=== PATIENT | male | born 1945 | race Caucasian/White ===

== ENCOUNTER 2018-06-24 12:58 | Outpatient (CLI) | payer MEDICARE ==
[2018-06-24] MEDS ORDERED: ALBUTEROL NEB 2.5 MG/3 ML INH ONE (15:00)
== END 2018-06-24 12:59 | disposition home or self-care (01) ==
LOC: RT 12:58
PROVIDERS: ATTEND Registered Nurse
DX: J42 Unspecified chronic bronchitis (principal); J44.9 Chronic obstructive pulmonary disease, unspecified; F17.200 Nicotine dependence, unspecified, uncomplicated
CPT/HCPCS: 94060

== ENCOUNTER 2018-06-28 10:48 | Outpatient (CLI) | payer MEDICARE ==
--- NOTE | 2018-06-28 13:05 | CT Report ---
Reason: ENCOUNTER FOR SCREENING FOR MALIGNANT NEOPLASM OF Procedure Date: 06/28/2018 Accession Number: [id number] / [id number] Procedure: CT - Chest/Lung Screen Low Dose W/O CPT Code: FULL RESULT: EXAM CT LUNG SCREEN EXAM DATE: 06/28/2018 11:10 AM. HISTORY: 73-year-old patient with [id number] smoking history, current smoker. COMPARISON: CT lung screening 04/19/2017. TECHNIQUE: CT examination of the entire thorax without contrast was performed using low-dose technique. Thin section coronal, axial, sagittal and MIP axial images were obtained. In accordance with CT protocol optimization, one or more of the following dose reduction techniques were utilized for this exam: automated exposure control, adjustment of mA and/or KV based on patient size, or use of iterative reconstructive technique. FINDINGS: Nodules: Right upper lobe: 5 x 3 mm solid (32/4), unchanged. 2 mm solid (47), unchanged. 3 x 4 mm solid (54), unchanged. 5 x 5 mm solid (73), stable. 1 mm solid peripheral (99), unchanged. Right middle lobe: None. Right lower lobe: 2 mm solid (126), previously 3 mm. Left upper lobe: 2-3 mm solid peripheral (21, 29, 33, 39, 60, 85), unchanged. Left lower lobe: 3 mm solid (110), unchanged. 4 mm solid (111), unchanged. Emphysema: Moderate centrilobular and paraseptal emphysema. Pleura: Unremarkable. No pleural calcification or effusion. Thoracic Aorta: Ascending thoracic aorta 3.8 cm, unchanged. Mediastinum: No gross mediastinal or hilar adenopathy. Normal heart size. Coronary calcifications: Three-vessel coronary calcifications. Other pulmonary findings: Scattered bilateral pleural-parenchymal scarring. Other extrapulmonary findings: Degenerative changes of the spine. IMPRESSION: Lung-RADS ASSESSMENT CATEGORY: 2 - Benign appearance or behavior. Probability of malignancy: Less than 1%. RECOMMENDATION: Continue annual screening with LDCT per Lung-RADS guidelines. RADIA
== END 2018-06-28 10:49 | disposition home or self-care (01) ==
LOC: DI 10:48
PROVIDERS: ATTEND Registered Nurse
DX: Z12.2 Encounter for screening for malignant neoplasm of respiratory organs (principal); F17.210 Nicotine dependence, cigarettes, uncomplicated

== ENCOUNTER 2019-12-26 10:42 | Outpatient (CLI) | payer MEDICARE ==
--- NOTE | 2019-12-26 12:44 | CT Report ---
PROCEDURE: Low Dose Lung Cancer Screen INDICATIONS: TABACCO USER TECHNIQUE: Noncontrast low-dose 5 mm thick sections acquired from the pulmonary apices to the posterior costophr enic angles. 7 mm thick coronal and sagittal MIP reformats were then acquired. For radiation dose r eduction, the following was used: automated exposure control, adjustment of mA and/or kV according t o patient size. COMPARISON: Prior similar CT screening studies 06/28/2018 and 04/19/2017 reviewed. FINDINGS: Image quality: Excellent. Lungs and pleura: Severe centrilobular emphysema again noted. Focal lung scarring at the right apex has been previously present, and is again seen on the current study series 4 image 45, virtually iden tical to the prior study in June of last year seen on series 4 image 32. No new lesion has develop ed. Mediastinum: Heart size is normal. No pericardial effusion. No mediastinal adenopathy by size crit eria. Thoracic aorta and central pulmonary arteries are normal in size. Esophagus is normal in vonnie osphia. No hiatal hernia. Bones and chest wall: No suspicious bony lesions. No vertebral body compression fractures. No axil ashleigh or supraclavicular adenopathy by size criteria. The thyroid is normal in size. Abdomen: Visualized upper abdomen solid organs and bowel loops appear normal in the absence of contr ast. IMPRESSION: Severe emphysema but no early manifestation of new onset lung carcinoma is found. Lung RADS category 1, follow-up noncontrast low-dose screening CT in one year is recommended. Reviewed by: Ishaan Grace MD on 12/26/2019 12:42 PM PDT Approved by: Ishaan Grace MD on 12/26/2019 12:42 PM PDT Station ID: [id number]
== END 2019-12-26 10:43 | disposition home or self-care (01) ==
LOC: DI 10:42
PROVIDERS: ATTEND Registered Nurse
DX: Z12.2 Encounter for screening for malignant neoplasm of respiratory organs (principal); J43.2 Centrilobular emphysema; F17.200 Nicotine dependence, unspecified, uncomplicated
CPT/HCPCS: G0297 ×2

== ENCOUNTER 2021-04-21 12:15 | Outpatient (CLI) | payer MEDICARE ==
[2021-04-21] MEDS ORDERED: REGADENOSON 0.4 MG/5 ML SYRINGE IVP ONE ×2 (14:16→16:28)
[2021-04-21] MEDS ORDERED: AMINOPHYLLINE 500 MG/20 ML VIAL ONE (14:16)
--- NOTE | 2021-04-21 14:35 | CARDIAC PROCEDURE NOTE ---
Stress Test Report Service Date: 04/21/21 Service Time: 12:30 Ordering Provider: Kelsy Gupta NP Indication for Test: Repeat risk stratification for CAD in patient with remote AZ. Significant Medical History: -Mr Lewis reports an AZ occurring in the mid , manifested by crushing chest pain. The infarct was treated medically and his recollection is that the event was attributed to a "kinked" left circumflex coronary artery. He has never had any chest pain of similar character since. He remains on treatment with atorvastatin and ASA, with lisinopril for hypertension. -A "couple of years ago" he experienced what appears to have been an acute left lower extremity clot versus embolus, treated with urgent surgery. -He remains physically active, reporting yard work, other household tasks and shopping, but says he has "slowed down" markedly, with dyspnea if he goes too fast; this seems to have been of gradual onset, without clear recent worsening. Cardiac Risk Factors: Positive for known prior AZ, hypertension, dyslipidemia and family history of CAD; he is still smoking cigarettes, about a quarter pack per day. He denies history of diabetes. Type of Stress Test: Pharmacologic Stress Test with MPI Pharmacologic Agent: Lexiscan Procedure: -Pharmacologic Stress Test- After signing informed consent, the patient underwent rest SPECT imaging and then a walking Lexiscan pharmacologic stress test. The protocol includes 2 minutes of flat walking at 0.7 mph ("baseline" assessment) followed by injection of Lexiscan and high dose 99Tc-Myoview with an additional 2 minutes of walking ("peak" reassesment) followed by monitoring for an additional 4 minutes ("recovery"). The test was terminated due to completing the protocol. Baseline heart rate: 81 Peak heart rate: 108 Normal HR response. Baseline BP: 160/98 Peak BP: 164/79 Normal BP response. Rhythm during testing: Sinus rhythm with isolated PACs, PVCs and a single observed ventricular triplet. Symptoms: Slight increase in shortness of breath. EKG at rest showed normal sinus rhythm with PAC and PVC. EKG at peak stress showed no ischemia by EKG criteria. In Recovery heart rate gradually returned to baseline, blood pressure remained elevated. Nuclear imaging was performed at rest and with stress. The images will be reported separately. Jeovanny Carrillo MD, was present throughout this treadmill/pharmacologic stress study and supervised it in its entirety. Summary: 1) Abnormal resting EKG. 2) Adequate stress was likely achieved. 3) Abnormal BP response to pharmacologic agent. 4) No ischemic changes by EKG criteria were seen at peak stress. 5) Nuclear image interpretation to be reported separately. CONCLUSIONS:
--- NOTE | 2021-04-21 17:22 | Nuclear Medicine Report ---
PROCEDURE: Rest and stress myocardial perfusion SPECT with gated imaging and ejection fraction INDICATIONS: CONGENITAL HEART DISEASE RADIOPHARMACEUTICAL: 11.0 mCi Tc-99m Myoview IV at rest and 34.5 mCi Tc-99m Myoview IV at peak exerc ise. [id number]-[id number] was performed. 0.4 mg Lexiscan was administered. TECHNIQUE: Radiopharmaceutical was injected at peak stress test, and also at rest. SPECT images wer e obtained. SPECT myocardial perfusion images were displayed in short axis, horizontal long axis, an d vertical long axis views. Gated images were reviewed using AutoQUANT software. COMPARISON: None available. FINDINGS: Raw data: There is good myocardial labeling by radiotracer. No significant motion artifacts. Lung- to-heart ratio is (normal is less than 0.46 for tetrafosmin tracer). Left ventricle function: Gated images demonstrate normal left ventricle wall thickening. No segment al wall motion abnormality. No transient ischemic dilation; TID is 0.92 (normal less than 1.30). Th e left ventricle resting end-diastolic volume is 78 mL. Left ventricle stress ejection fraction is 7 0%; normal values are above 45%. Myocardial perfusion: There is normal distribution of activity in the left and right ventricular kari cardium. No fixed or reversible perfusion defects. IMPRESSION: 1. No perfusion defects to indicate ischemia. No wall motion abnormalities. 2. Ejection fraction 70%. 3. No definitive EKG changes for ischemia. PQRS ATTESTATIONS: Measure 322 - Is this imaging test primarily performed on a low-risk surgery patient for preoperative evaluation within 30 days preceding their low-risk non-cardiac surgery? Low-risk surgery is defined as cardiac or myocardial infarction less than 1%, including (but not limited to) endoscopic pr ocedures, superficial procedures, cataract surgery, and excisional breast surgery: Answer: No Measure 323 - Is this imaging test performed primarily for the monitoring of an asymptomatic patient who had percutaneous coronary intervention on the visit date or within 2 years of the visit date? An swer: No Measure 324 - Is this imaging test performed primarily for the initial detection and risk assessment on an asymptomatic, low coronary heart disease patient? Low CHD risk definition = clinicians should consider the maximum number of available patient factors used to estimate risk based on [place] (A TP III criteria), typically age, gender, diabetes, smoking status, and use of blood pressure medicati on, and integrate age appropriate estimates for missing elements, such as LDL or standard blood press ure. Answer: No Reviewed by: Renetta Levi MD on 04/21/2021 5:21 PM PST Approved by: Renetta Levi MD on 04/21/2021 5:21 PM PST Station ID: [id number]
[2021-04-24] MEDS ORDERED: NITROGLYCERIN SL 0.4 MG TABLET SL PRN (14:45)
== END 2021-04-21 12:16 | disposition home or self-care (01) ==
LOC: DI 12:15
PROVIDERS: ATTEND Registered Nurse
DX: Q24.9 Congenital malformation of heart, unspecified (principal)
CPT/HCPCS: 78452; 93017; A9500; J2785

== ENCOUNTER 2023-02-25 17:43 | Emergency (ER) | payer MEDICARE ==
[2023-02-25 18:06] VITALS: BP 129/82
[2023-02-25] MEDS ORDERED: methylPREDNISolone SUCCINATE 125 MG/2 ML VIAL IVP STA (18:21)
--- NOTE | 2023-02-25 18:21 | ED Physician Documentation ---
PD HPI DYSPNEA - Stated complaint Stated Complaint: SOA/COUGHING - Chief complaint Chief Complaint: Resp - History obtained from History obtained from: Patient - Additional information Additional information: 78-year-old gentleman with history of COPD. Still smokes. At baseline uses 2 inhalers. No other health problems. He got sick about 6 days ago with a cold and then over the subsequent days developed severe shortness of breath. He has a cough productive of clear to white sputum. No chest pain. No fevers. Negative COVID test earlier today. Went to primary care today to actually follow-up on a rising creatinine issue and was sent here because of wheezing and hypoxemia. He received a nebulizer in the clinic and actually feels better now. No pedal edema or calf pain. PD PAST MEDICAL HISTORY - Past Medical History Cardiovascular: Hypertension, MD - Past Surgical History Past Surgical History: Yes - Present Medications Home Medications: Ambulatory Orders Medication Instructions Recorded Confirmed Levothyroxine [Synthroid] 200 mg PO DAILY 12/31/15 01/06/16 lisinopriL [Lisinopril] 5 mg PO DAILY 12/31/15 01/06/16 Hydrocodone/Acetaminophen 1 - 2 each PO Q4H PRN 01/07/16 01/07/16 [Hydrocodon-Acetaminophen 5-325] Doxycycline [Vibramycin] 100 mg PO BID #14 tablet 02/25/23 predniSONE [Deltasone] 20 mg PO [id number] #21 tab 02/25/23 - Allergies Allergies/Adverse Reactions: Allergies Allergy/AdvReac Type Severity Reaction Status Date / Time No Known Drug Allergies Allergy Verified 12/31/15 09:26 - Social History Does the pt smoke?: Yes Smoking Status: Current every day smoker Does the pt drink ETOH?: No Does the pt have substance abuse?: No PD ED PE NORMAL - Vitals Vital signs reviewed: Yes - General General: Alert and oriented X 3, No acute distress - Neck Neck: Supple, no meningeal sign, No bony TTP - Cardiac Cardiac: RRR, No murmur - Respiratory Respiratory: Other (Diminished throughout without focal findings, speaking full sentences but mildly tachypneic.) - Extremities Extremities: No edema, No calf tenderness / cord - Neuro Neuro: Alert and oriented X 3, Normal speech Results - Vitals Vitals: Vital Signs - 24 hr 02/25/23 18:00 Temperature 37.1 C Heart Rate 81 Respiratory 28 H Rate Blood Pressure 129/82 H O2 Saturation 89 L Oxygen O2 Source Room air - EKG (time done) 1756 EKG releavant findings:: EKG personally interpreted by author of this note. Relevant findings are: Rate: Rate (enter#) (78) Rhythm: NSR [place]: Normal Intervals: Normal [place] QRS: Normal Ischemia: Normal ST segments - Labs Labs: Laboratory Tests 02/25/23 02/25/23 02/25/23 18:19 18:19 18:19 WBC 11.8 H RBC 4.66 L Hgb 13.8 L Hct 42.7 MCV 91.6 MCH 29.6 MCHC 32.3 RDW 19.6 H Plt Count 329 MPV 11.6 H Neut # (Auto) 7.1 H Lymph # (Auto) 3.5 [place] # (Auto) 0.8 Eos # (Auto) 0.3 Baso # (Auto) 0.1 Absolute Nucleated RBC 0.00 Nucleated RBC % 0.0 VBG pH 7.287 L VBG pCO2 57.7 H VBG pO2 24.2 L VBG HCO3 26.9 VBG Total CO2 28.7 VBG O2 Saturation 48.3 L VBG Base Excess -0.9 Sodium 145 Potassium 4.7 H Chloride 110 Carbon Dioxide 30 Anion Gap 5.0 L BUN 32 H Creatinine 1.7 H Estimated GFR (MDRD) 39 L Glucose 109 H Calcium 9.4 Phosphorus 4.2 Magnesium 1.9 Total Bilirubin 0.6 AST 15 ALT 13 Alkaline Phosphatase 96 Total Protein 6.1 L Albumin 3.9 Globulin 2.2 Albumin/Globulin Ratio 1.8 - Rads (name of study) Single view chest x-ray demonstrates hyperinflation and chronic interstitial changes. Relevant Findings:: Final report received, EMP independent interpretation of test PD Medical Decision Making - ED course ED course: 78-year-old gentleman with COPD exacerbation, clear chest x-ray. Mild elevation of white count. Mild acidosis and CO2 retention. Creatinine continues to rise. He did not want to be hospitalized and here at rest after IV Solu-Medrol his sats were in the mid 90s on room air. Close follow-up advised. Departure - Departure Disposition: 01 Home, Self Care Clinical Impression: COPD exacerbation Condition: Good Record reviewed to determine appropriate education?: Yes Instructions: COPD Dc Prescriptions: predniSONE [Deltasone] 20 mg PO [id number] #21 tab Doxycycline [Vibramycin] 100 mg PO BID #14 tablet Comments: Do best to quit smoking also discussed other options with your primary care physician, such as Chantix. Return if worse. I am prescribing antibiotics and steroids which should be helpful as well. Your kidney function is still rising and this requires further work-up with your primary care physician as well. Drink plenty of fluids. Forms: PCP List
--- NOTE | 2023-02-25 18:24 | XRAY Report ---
PROCEDURE: Chest 1 View X-Ray INDICATIONS: cough dyspnea TECHNIQUE: One view of the chest was acquired. COMPARISON: None FINDINGS: Surgical changes and devices: None. Lungs and pleura: There is hyperinflation and chronic interstitial changes without focal infiltrate, pneumothorax or pleural effusion. Mediastinum: Mediastinal contours appear normal. Heart size is normal. Bones and chest wall: No suspicious bony lesions. Overlying soft tissues appear unremarkable. IMPRESSION: Hyperinflation and chronic interstitial changes Reviewed by: Win Herndon MD on 02/25/2023 5:22 PM AKDT Approved by: Win Herndon MD on 02/25/2023 5:22 PM AKDT Station ID: [id number]
[2023-02-25 18:41] LABS: VBG BASE EXCESS -0.9 mmol/L (-2 - +2); VBG HCO3 26.9 mmol/L (23-28); VBG OXYGEN SATURATION 48.3 % (60-80); VBG PCO2 57.7 mmHg (41-51); VBG PH 7.287 (7.31-7.41); VBG PO2 24.2 mmHg (25-47); VBG TOTAL CO2 28.7 mmol/L (24-29)
[2023-02-25 18:43] LABS: BASOPHILS # (AUTO) 0.1 10^3/uL (0.0-0.1); BASOPHILS % (AUTO) 0.5 %; EOSINOPHILS # (AUTO) 0.3 10^3/uL (0.0-0.7); EOSINOPHILS % (AUTO) 2.5 %; HCT - HEMATOCRIT 42.7 % (42.0-52.0); HGB - HEMOGLOBIN 13.8 g/dL (14.0-18.0); LYMPHOCYTES # (AUTO) 3.5 10^3/uL (1.5-3.5); LYMPHOCYTES % (AUTO) 29.4 %; MEAN CORPUSCULAR HEMOGLOBIN 29.6 pg (27.0-31.0); MEAN CORPUSCULAR HGB CONC 32.3 g/dL (32.0-36.0); MEAN CORPUSCULAR VOLUME 91.6 fL (80.0-94.0); MEAN PLATELET VOLUME 11.6 fL (7.4-11.4); MONOCYTES # (AUTO) 0.8 10^3/uL (0.0-1.0); MONOCYTES % (AUTO) 6.5 %; NEUTROPHILS # (AUTO) 7.1 10^3/uL (1.5-6.6); NEUTROPHILS % (AUTO) 60.1 %; PLT - PLATELET COUNT 329 10^3/uL (130-450); RED BLOOD COUNT 4.66 10^6/uL (4.70-6.10); RED CELL DISTRIBUTION WIDTH 19.6 % (12.0-15.0); WHITE BLOOD COUNT 11.8 x10^3/uL (4.8-10.8)
[2023-02-25 18:57] LABS: ALBUMIN 3.9 g/dL (3.2-5.5); ALBUMIN/GLOBULIN RATIO 1.8 (1.0-2.2); BILIRUBIN,TOTAL 0.6 mg/dL (0.2-1.0); CALCIUM 9.4 mg/dL (8.5-10.3); CREATININE 1.7 mg/dL (0.6-1.3); MAGNESIUM 1.9 mg/dL (1.7-2.3); PHOSPHORUS 4.2 mg/dL (2.5-5.0); POTASSIUM 4.7 mmol/L (3.5-4.5); TOTAL PROTEIN 6.1 g/dL (6.4-8.9)
[2023-02-25] MEDS ORDERED: DOXYCYCLINE 100 MG TABLET PO STA (19:12)
[2023-02-25 19:30] VITALS: O2SAT 93
[2023-02-25 19:44] LABS: B. PARAPERTUSSIS- RESP PCR PAN NOT DETECTED; B. PERTUSSIS- RESP PCR PANEL NOT DETECTED; C. PNEUMONIAE- RESP PCR PANEL NOT DETECTED; CORONAVIRUS 229E-RESP PCR NOT DETECTED; CORONAVIRUS HKU1-RESP PCR NOT DETECTED; CORONAVIRUS NL63-RESP PCR NOT DETECTED; CORONAVIRUS OC43-RESP PCR NOT DETECTED; HUMAN METAPNEUMOVIRUS NOT DETECTED; INFLUENZA A- RESP PCR PANEL NOT DETECTED; INFLUENZA B - RESP PCR PANEL NOT DETECTED; M. PNEUMONIAE- RESP PCR PANEL NOT DETECTED; PARAINFLUENZA VIRUS 1 NOT DETECTED; PARAINFLUENZA VIRUS 2 NOT DETECTED; PARAINFLUENZA VIRUS 3 NOT DETECTED; PARAINFLUENZA VIRUS 4 NOT DETECTED; RHINOVIRUS/ENTEROVIRUS DETECTED; RSV- RESP PCR PANEL NOT DETECTED; SARS-CoV-2 -RESP PCR PANEL NOT DETECTED
== END 2023-02-25 20:05 | disposition home or self-care (01) ==
LOC: ED 17:43
DX: J44.1 Chronic obstructive pulmonary disease with (acute) exacerbation (principal); E87.29 Other acidosis; J96.02 Acute respiratory failure with hypercapnia; F17.200 Nicotine dependence, unspecified, uncomplicated; Z20.822 Contact with and (suspected) exposure to COVID-19
CPT/HCPCS: 36415; 71045; 80053; 82803; 83735; 84100; 85025; 87633; 93005; 96374; 99284; A9270

== ENCOUNTER 2023-03-12 12:40 | Outpatient (CLI) | payer MEDICARE ==
--- NOTE | 2023-03-12 14:48 | Ultrasound Report ---
PROCEDURE: Retroperitoneal INDICATIONS: CKD TECHNIQUE: Real-time scanning was performed of the retroperitoneal organs, with image documentation. COMPARISON: None. FINDINGS: Kidneys: Kidneys are normal in size. Right kidney measures 9.3 cm long; left kidney measures 9.4 cm long. Right renal cortical thickness is 1.1 cm; left renal cortical thickness is 0.7 cm. There is a 5 mm stone at the midpole the right kidney. There is a 6 mm stone at the superior pole the left kid darrian. No solid masses. Extrarenal pelvis on the right versus mild hydronephrosis. No left hydronephros is. Bilateral renal cysts, the largest on the right measuring 3.3 cm and the largest on the left seen exophytic at the inferior pole measuring 4.7 cm. Bladder: Pre-void bladder volume is 431 mL. Post-void residual is 328 mL. Pre-void images demonstr ate no intraluminal masses or stones. Irregular appearance of the bladder wall, likely secondary to c hronic bladder outlet obstruction. On pre-void images, bilateral ureteral jets are noted with color D oppler interrogation. (Of note, ureteral jets may not be detectable in up to 25% of cases due to ins ufficient differences in specific gravity between ureteral and bladder urine). The prostate is enlarged measuring 6.0 x 5.3 x 6.5 cm, volume of 107 mL. Miscellaneous: No free abdominal fluid. IMPRESSION: 1.Mild right hydronephrosis versus extrarenal pelvis. 2.Nonobstructing stones in the bilateral kidneys measuring 5 mm in the right and 6 mm on the left. 3.The prostate is enlarged measuring 6.5 cm. 4.There is 328 mL of postvoid residual. Irregular appearance of the bladder wall, likely related to c hronic bladder obstruction. Reviewed by: Fred Paris MD on 03/12/2023 2:46 PM PDT Approved by: Fred Paris MD on 03/12/2023 2:46 PM PDT Station ID: [id number]
== END 2023-03-12 23:59 | disposition home or self-care (01) ==
LOC: DI 12:40
PROVIDERS: ATTEND Registered Nurse
DX: N20.0 Calculus of kidney (principal); N18.30 Chronic kidney disease, stage 3 unspecified; N40.0 Benign prostatic hyperplasia without lower urinary tract symptoms

== ENCOUNTER 2023-03-19 08:57 | Outpatient (CLI) | payer MEDICARE ==
--- NOTE | 2023-04-08 02:24 | Ultrasound Report ---
PROCEDURE: Arterial Visceral Complete INDICATIONS: CKD TECHNIQUE: Real time scanning was performed of both kidneys, followed by Color and pulsed Doppler in terrogation of the renal vessels. COMPARISON: None FINDINGS: Aortic peak systolic velocity: 82 cm/s. Right side: Zheng-scale imaging: Kidney is 8.7 cm long; renal cortical thickness is 1.3 cm. No hydronephrosis. N onobstructing 4 mm right lower pole stone.. Renal cortex is normal in echogenicity. No suspicious s olid renal masses. Simple cyst measuring 3.9 cm. Proximal renal artery peak systolic velocity: 151 cm/s. Mid renal artery peak systolic velocity: 121 cm/s. Distal renal artery peak systolic velocity: 73 cm/s. Renal vein: Patent, without thrombus. Peak renal/aortic ratio (RAR): 1.84. Intraparenchymal resistive indices range from normal to mildly elevated, from 0.62-0.75. Waveforms re main normal.. Left side: Zheng-scale imaging: Kidney is 9.6 cm long; renal cortical thickness is 1.2 cm. No hydronephrosis. A 4 mm nonobstructing left upper pole stone. Renal cortex is normal in echogenicity. No suspicious so lid renal masses. 4.5 cm exophytic cyst. Proximal renal artery peak systolic velocity: 77 cm/s. Mid-renal artery peak systolic velocity: 69 cm/s. Distal renal artery peak systolic velocity: 89 cm/s. Renal vein: Patent, without thrombus. Peak renal/aortic ratio (RAR): 1.07. Intraparenchymal resistive indices are mildly elevated ranging from 0.75-0.78 waveforms remain normal . IMPRESSION: 1. No sonographic evidence of renal artery stenosis. 2. Borderline elevated bilateral resistive indices suggest chronic medical renal disease. 3. Bilateral nonobstructing nephrolithiasis. Reviewed by: Sophia Patton MD on 04/08/2023 2:22 AM PDT Approved by: Sophia Patton MD on 04/08/2023 2:22 AM PDT Station ID: [id number]
== END 2023-03-19 08:58 | disposition home or self-care (01) ==
LOC: DI 08:57
PROVIDERS: ATTEND Registered Nurse
DX: N18.30 Chronic kidney disease, stage 3 unspecified (principal); N20.0 Calculus of kidney
CPT/HCPCS: 93975